=== PATIENT | male | born 2005 | race Two or more races ===

== ENCOUNTER 2025-01-13 20:46 | Emergency (ER) | payer MEDICAID, OTHER ==
[~2025-01-13] VITALS: Ht 177.8 cm; Wt 82.0 kg
[2025-01-13 21:00] VITALS: BP 127/87; PULSE 126; RESP 20; O2SAT 97
[2025-01-13] MEDS ORDERED: SODIUM CHLORIDE 0.9% 1,000 ML IV ONE (21:00)
[2025-01-13] MEDS ORDERED: KETOROLAC TROMETH 30 MG/ML 1ML VIAL IV ONE (21:00)
[2025-01-13] MEDS ORDERED: ACETAMINOPHEN IV 1000 MG/100ML (10MG/ML) IV ONE (21:00)
--- NOTE | 2025-01-13 21:18 | ED.PDOC ---
History of Present Illness HPI Comments 19-year-old male who is brought in by ambulance for chief complaint of nonradiating, lower abdominal pain. Patient endorses on onset of pain after taking Suboxone 2 hours ago. Pain is burning in quality and it is 7/10 in severity and worse in his left lower quadrant region. He reports on having one previous episode of similar pain, with accompanying ED visit, following cocaine use 2x days ago, which was benign. Patient also reports on not using Suboxone for over a month prior to today and is prescribed it for opioid addiction for over the past year. Vitals stable and within normal limits on scene and en route, with exception of being hypertensive, per EMS. Blood glucose on scene of 83. Patient denies any nausea, vomiting, diarrhea, constipation, urinary symptoms, fever, chills, or further associated symptoms. Chief Complaint: Abdominal Pain Time Seen by MD: 20:50 Reviewed Notes: Nurses Notes, Medications, Allergies Information Source: Patient, Emergency Med Personnel Mode of Arrival: EMS Severity: Moderate Timing: Hours Duration: Since onset Prehospital treatment: 12 Lead EKG, Manager Community Review of Systems: REVIEW OF SYSTEMS: No fever, no chills, HEENT: No neck pain, no blurred vision Cardiac: No chest pain. No palpitations. Lungs: No shortness of breath, GI: Abdominal pain, no vomiting Musculoskeletal: No joint pain , no back pain Skin: No rash, no wound Neuro: No headache, no dizziness, no syncope Vital Signs Vital Signs Date Time Temp Pulse Resp B/P (MAP) Pulse Ox O2 Delivery O2 Flow Rate FiO2 01/13/25 21:00 126 20 127/87 (100) 97 Physical Exam General: Awake, alert and oriented. No acute distress. Skin: Skin in warm, dry and intact without rashes or lesions. HEENT: The head is normocephalic and atraumatic. Conjunctivae are clear without exudates or hemorrhage. Sclera is non-icteric. Neck: Normal range of motion. No JVD. Cardiac: Regular rate Respiratory: No signs of respiratory distress. No Stridor. Gastrointestinal: Lower abdominal tenderness, worse on left lower quadrant with diminished bowel sounds Extremities: Upper and lower extremities are atraumatic in appearance without deformity. Neurological: The patient is awake, alert and oriented to person, place, and time with normal speech. Speech is clear. There is no facial asymmetry. Psychiatric: Appropriate mood and affect. Good judgement and insight. Past Medical History PAST MEDICAL HISTORY: Denies Surgical History: Denies all surgeries Family History Family History: Unknown Social History Smoker: Non-Smoker Alcohol: Denies ETOH Use Drugs: Cocaine, Other (former opioide use ) Lives In: Home Was a procedure done? Was a procedure done?: No Differential Dx Considerations may include: Differential diagnoses considered include: Abdominal aortic aneurysm, [place], esophageal rupture, intestinal obstruction, mesenteric ischemia, perforated viscus or solid organ rupture, CHF with hepatomegaly, pneumonia, abscess, appendicitis, biliary disease, diverticulitis, gastritis, gastroenteritis, hepatitis, hernia, inflammatory bowel disease, pancreatitis, peptic ulcer disease, urinary tract infection, ureteral colic, constipation, GERD, irritable syndrome, abdominal wall pain, nonspecific abdominal pain, herpes zoster, nephrolithiasis. X-Ray, Labs, Meds, VS Vital Signs Date Time Temp Pulse Resp B/P (MAP) Pulse Ox O2 Delivery O2 Flow Rate FiO2 01/13/25 21:00 126 20 127/87 (100) 97 Lab Test 01/13/25 21:30 Range/Units White Blood Count 8.1 4.4-10.8 10^3/uL Red Blood Count 5.37 4.5-5.90 10^6/uL Hemoglobin 16.1 13.5-17.5 g/dL Hematocrit 47.4 41.0-53.0 % Mean Corpuscular Volume 88.4 80.0-100.0 fL Mean Corpuscular Hemoglobin 30.0 28.0-32.0 pg Mean Corpuscular Hemoglobin Concent 33.9 32.0-36.0 g/dL Red Cell Distribution Width 13.5 11.8-14.3 % Platelet Count 269 140-450 10^3/uL Mean Platelet Volume 8.3 6.9-10.8 fL Neutrophils (%) (Auto) 64.1 37.0-80.0 % Lymphocytes (%) (Auto) 26.1 10.0-50.0 % Monocytes (%) (Auto) 6.8 0.0-12.0 % Eosinophils (%) (Auto) 2.2 0.0-7.0 % Basophils (%) (Auto) 0.8 0.0-2.0 % Neutrophils # (Auto) 5.2 1.6-8.6 10 ^3/uL Lymphocytes # (Auto) 2.1 0.4-5.4 10 ^3/uL Monocytes # (Auto) 0.6 0-1.3 10 ^3/uL Eosinophils # (Auto) 0.2 0-0.8 10 ^3/uL Basophils # (Auto) 0.1 0-0.2 10 ^3/uL Nucleated Red Blood Cells 0.1 % Sodium Level 141 136-145 mmol/L Potassium Level 4.1 3.5-5.1 mmol/L Chloride Level 105 98-107 mmol/L Carbon Dioxide Level 26 20-31 mmol/L Anion Gap 10 5-15 Blood Urea Nitrogen 11 9-23 mg/dL Creatinine 0.93 0.700-1.30 mg/dL Glomerular Filtration Rate Calc 120 >90 mL/min BUN/Creatinine Ratio 11.8 10.0-20.0 Serum Glucose 90 74-106 mg/dL Lactic Acid Level 1.0 0.4-2.0 mmol/L Calcium Level 10.2 8.7-10.4 mg/dL Total Bilirubin 0.6 0.2-1.0 mg/dL Aspartate Amino Transferase (AST) 25 13-40 U/L Alanine Aminotransferase (ALT) 22 7-40 U/L Alkaline Phosphatase 105 46-116 U/L Total Protein 8.2 5.7-8.2 g/dL Albumin 5.3 H 3.2-4.8 g/dL Lipase 29 12-53 U/L Time of 1ST Reevaluation: 21:20 Reevaluation 1ST: Unchanged Patient Education/Counseling: Treatment Family Education/Counseling: No Family Present SEPSIS Sepsis Screen Physician Orders Urinalysis (01/13/25 21:00) Ct Ab Pel With Iv Con Only (01/13/25 21:00) Vital Signs Date Time Temp Pulse Resp B/P (MAP) Pulse Ox O2 Delivery O2 Flow Rate FiO2 01/13/25 21:00 126 20 127/87 (100) 97 Laboratory Tests Test 01/13/25 21:30 Lactic Acid Level 1.0 mmol/L (0.4-2.0) White Blood Count 8.1 10^3/uL (4.4-10.8) Departure 1 Departure Time of Disposition: 04:01 Impression: Primary Impression: Abdominal pain Additional Impression: Eloped from emergency department Disposition: LEFT AWOL/ELOPED Condition: Other Comments PATIENT ELOPED FROM THE EMERGENCY DEPARTMENT PRIOR TO RE-EVALUATION AND REVIEWING TEST RESULTS WITH THE PATIENT Extensive evaluation was performed in attempt to identify or rule out: (See differential diagnosis section) The following tests were ordered, and results were reviewed by me: (See diagnostic results section) The following test were independently interpreted by me: N/A I reviewed and agreed with the following test results read by other providers: CT abdomen and pelvis with IV contrast I reviewed the following notes from the pt's past medical encounters: N/A Additional information was gathered from interviewing the following independent historians: EMS PERSONNEL Discussion of management or test interpretation with external physician/other qualified health career consultant: N/A Drug therapy requiring intensive monitoring for toxicity: IV CONTRAST Parenteral controlled substances: N/A Decision regarding elective major surgery with identified patient or procedure risk factors: N/A Decision regarding emergency major surgery: N/A Decision not to resuscitate or to de-escalate care because of poor prognosis: N/A Diagnosis or treatment significantly limited by social determinants of health: N/A Critical Care Note Critical Care Time?: No Stability Stability form required: No Heart Score Heart Score: Heart Score Response (Comments) Value History N/A 0 EKG N/A 0 Age N/A 0 Risk Factors N/A 0 Troponin N/A 0 Total 0 I personally scribed for ALTAGRACIA WEBB MD ([employer]) on 01/13/25 at 21:18. Electronically submitted by Flip Johnson ([email or web address]). I personally scribed for ALTAGRACIA WEBB MD ([employer]) on 01/13/25 at 22:21. Electronically submitted by Flip Johnson ([email or web address]). ALTAGRACIA WEBB MD Jan 13, 2025 21:18
[2025-01-13 21:47] LABS: Hematocrit 47.4 % (41.0-53.0); Hemoglobin 16.1 g/dL (13.5-17.5); Mean Corpuscular Hemoglobin 30.0 pg (28.0-32.0); Mean Corpuscular Volume 88.4 fL (80.0-100.0); Nucleated Red Blood Cells % 0.1 %
[2025-01-13] MEDS ORDERED: IOHEXOL 300 MG/ML 100ML BOTTLE IJ ONE (21:48)
[2025-01-13 22:00] LABS: Alanine Aminotransferase 22 U/L (7-40); Alkaline Phosphatase 105 U/L (46-116); Anion Gap 10 (5-15); BUN/Creatinine Ratio 11.8 (10.0-20.0); Blood Urea Nitrogen 11 mg/dL (9-23); Calcium 10.2 mg/dL (8.7-10.4); Carbon Dioxide 26 mmol/L (20-31); Chloride 105 mmol/L (98-107); Glucose 90 mg/dL (74-106); Lipase 29 U/L (12-53); Potassium 4.1 mmol/L (3.5-5.1); Sodium 141 mmol/L (136-145); Total Protein 8.2 g/dL (5.7-8.2)
[2025-01-13 22:01] LABS: Bilirubin, Total 0.6 mg/dL (0.2-1.0)
[2025-01-13 22:08] LABS: Albumin 5.3 g/dL (3.2-4.8)
--- NOTE | 2025-01-13 23:22 | DVH ---
Exam: CT CT AB PEL WITH IV CON ONLY History: cta abdomen r/o mesenteric ischemia COMPARISON: None Technique: Multidetector spiral CT of the abdomen and pelvis was performed from lung bases to pubic s ymphysis. Intravenous contrast was administered during this examination. Portal venous imaging was obtained. Axial, coronal and sagittal multiplanar reformats were performed by the technologist on a separate workstation. Radiation Dose : 1. Abdomen/Pelvis: CTDIvol 7.32mGy, DLP 389.85 mGy*cm. CONTRAST: Type of contrast: Contrast injected: ml Contrast ingested: ml Findings: Lung Bases: No abnormality demonstrated. Liver: Liver is normal in size. No focal lesions noted. Normal hepatic vascular enhancement. Gallbladder and Biliary Tree: No abnormality demonstrated. Spleen: No abnormality demonstrated. Pancreas: No abnormality demonstrated. Adrenal Glands: No abnormality demonstrated. Kidneys: No abnormality demonstrated. Bladder: Unremarkable Bowel: Stomach appears grossly unremarkable. No abnormally dilated or thick-walled loops of large or small bowel noted. Appendix appears unremarkable. Ascites: Absent Lymphadenopathy: No evidence of lymphadenopathy. Abdominal Wall and Mesentery: Unremarkable. Vasculature: Unremarkable. Pelvic Organs: Unremarkable Musculoskeletal: No bony lesions or fracture. IMPRESSION: No acute abdominal or pelvic finding. Radiation optimization: All CT scans at this facility use at least one of these dose optimization luis alberto hniques: automated exposure control mA and/or kV adjustment per patient size (includes targeted exam s where dose is matched to clinical indication) or iterative reconstruction.
== END 2025-01-13 22:34 | disposition left against medical advice (07) ==
LOC: ER 20:46 → EDBD 20:46 → ER 22:34
DX: R10.32 Left lower quadrant pain (principal); F15.90 Other stimulant use, unspecified, uncomplicated
CPT/HCPCS: 36415; 74177; 80053; 83605; 83690; 85025; 99285; Q9967